=== PATIENT | male | born 1960 ===

== ENCOUNTER 2018-11-04 14:51 | Emergency (ER) | payer SELFPAY ==
[2018-11-04] MEDS ORDERED: methylPREDNISolone Acetate 40 mg/ml Vial ONE (15:27)
[2018-11-04] MEDS ORDERED: traMADol HCl 50 MG TAB ONE (15:27)
--- NOTE | 2018-11-04 16:04 | RAD ---
3 VIEW LEFT SHOULDER: Date: 11/04/18 CLINICAL HISTORY: Left shoulder pain. 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 No fracture or dislocation identified. There is ill-defined density a t the left pulmonary parenchyma. IMPRESSION: 1. Chronic irregularity at the lateral aspect of the clavicle, which may relate to chronic post-trau matic sequelae with associated moderate arthropathy of the left AC joint. 2. No acute fracture or dislocation identified. 3. There is patchy opacification of the partially imaged left lung. Recommend 2 view chest as follow -up for further evaluation. CODE T. POS: [facility]
== END 2018-11-04 16:21 | disposition home or self-care (01) ==
LOC: NAV ERS 14:51
DX: M25.812 Other specified joint disorders, left shoulder (principal); I10 Essential (primary) hypertension; E78.5 Hyperlipidemia, unspecified; Z87.891 Personal history of nicotine dependence; Z79.01 Long term (current) use of anticoagulants; Z79.899 Other long term (current) drug therapy
CPT/HCPCS: 96372; J1030

== ENCOUNTER 2021-07-03 11:47 | Emergency (ER) | payer OTHER, SELFPAY | END 2021-07-03 14:54 | disposition home or self-care (01) | LOC: NAV ERS 11:47 | DX: S09.90XA Unspecified injury of head, initial encounter (principal); S13.4XXA Sprain of ligaments of cervical spine, initial encounter; S70.02XA Contusion of left hip, initial encounter; E78.5 Hyperlipidemia, unspecified; E78.00 Pure hypercholesterolemia, unspecified; I10 Essential (primary) hypertension; Z87.891 Personal history of nicotine dependence; V69.40XA Driver of heavy transport vehicle injured in collision with unspecified motor vehicles in traffic accident, initial encounter | CPT/HCPCS: 70450; 72125; 72170 ==